=== PATIENT | female | born 1935 | race Caucasian/White ===

== ENCOUNTER → 2017-02-13 | Emergency (ER) | payer MEDICARE, BC ==
[~2017-02-13] MED LIST: ALDACTONE50 MG; BUDESONIDE EC3 MG; CALCIUM CARBON600 MG; CEFTIN500 MG; COLACE100 MG; COREG12.5 MG; DULCOLAX10 MG; LASIX20 MG; MILK OF MA400 MG/5 M; NORVASC5 MG; TYLENOL EXTRA500 MG; ULORIC80 MG; ULTRAM50 MG; VITAMIN D22000 UNIT; ZOLOFT100 MG; ZYRTEC10 MG
== END | disposition disaster alternative care site (69) ==
LOC: GAMB 20:08 → GACC 20:08
DX: S01.01XA Laceration without foreign body of scalp, initial encounter (principal); W18.11XA Fall from or off toilet without subsequent striking against object, initial encounter